=== PATIENT | male | born 1975 | race Caucasian/White ===

== ENCOUNTER 2021-05-17 12:03 | Day surgery (SDC) | payer OTHER, BC ==
[~2021-05-17] VITALS: Ht 177.8 cm; Wt 97.5 kg
[~2021-05-17 12:03] MED LIST: CEFAZOLIN SOD 1 GM in D5W 50 ML IV ONE
[2021-05-17] MEDS ORDERED: fentaNYL CITRATE/PF 100 MCG/2 ML AMP IVP ONE (13:38)
[2021-05-17] MEDS ORDERED: LIDOCAINE 1% 10 MG/ML, 20 ML MDV INJ ONE (13:38)
[2021-05-17] MEDS ORDERED: ONDANSETRON HCL 4 MG/2 ML VIAL IVP ONE (13:38)
[2021-05-17] MEDS ORDERED: DEXAMETHASONE SOD PHOSPHATE 4 MG/ML VIAL IVP ONE (13:38)
[2021-05-17] MEDS ORDERED: SEVOFLURANE 15 MIN GAS INH ONE (13:38)
[2021-05-17] MEDS ORDERED: PROPOFOL 200MG/ 20ML VIAL (DIPRIVAN) IV ONE (13:38)
[2021-05-17] MEDS ORDERED: MIDAZOLAM HCL 5 MG/5 ML VIAL IVP ONE (13:38)
[2021-05-17] MEDS ORDERED: LR 1,000 ML IV.SOLN IV ONE (13:38)
[2021-05-17] MEDS ORDERED: ONDANSETRON HCL 4 MG/2 ML VIAL IVP PRN (14:15)
[2021-05-17] MEDS ORDERED: HYDROmorphone 1 MG/ML INJ. CARTRIDGE IVP PRN ×2 (14:15)
[2021-05-17] MEDS ORDERED: LR 1,000 ML IV SCH (14:15)
[2021-05-17] MEDS ORDERED: MIDAZOLAM HCL 2 MG/2 ML VIAL (VERSED) IVP PRN (14:15)
[2021-05-17] MEDS ORDERED: METOCLOPRAMIDE HCL 10 MG/2 ML VIAL IVP PRN (14:15)
[2021-05-17] MEDS ORDERED: MEPERIDINE HCL/PF 25 MG/ML DISP.SYRIN IVP PRN (14:15)
[2021-05-17] MEDS ORDERED: HYDROcodone/ACETAMIN 5-325 MG TAB (NORCO/ VICODIN) PO PRN ×2 (15:15)
[2021-05-17] MEDS ORDERED: D5/0.45 NS 1,000 ML IV SCH (15:15)
[2021-05-17 16:33] VITALS: BP_SYST 119
== END 2021-05-17 16:50 | disposition home or self-care (01) ==
LOC: SDS 12:03 → SMU 12:05 → SDS 16:50
PROVIDERS: ATTEND Colon & Rectal Surgery
DX: Z45.2 Encounter for adjustment and management of vascular access device (principal); R59.0 Localized enlarged lymph nodes; K21.9 Gastro-esophageal reflux disease without esophagitis; E66.9 Obesity, unspecified; Z68.34 Body mass index [BMI] 34.0-34.9, adult; Z79.899 Other long term (current) drug therapy; Z20.822 Contact with and (suspected) exposure to COVID-19
CPT/HCPCS: 36561; 71045; 77001; C1788; C1894; J0690; J1100; J2001; J2250; J2405; J2704; J3010; J7060; J7120; U0003; 76000